=== PATIENT | male | born 1950 ===

== ENCOUNTER 2017-10-25 14:41 | Emergency (ER) | payer MEDICARE, OTHER ==
[2017-10-25 14:50] VITALS: BP 121/83; PULSE 107; RESP 16; O2SAT 99
[2017-10-25 15:18] VITALS: TEMP 100.5
--- NOTE | 2017-10-25 16:05 | ED PDOC ---
HPI: Altered Mental Status Time Seen by Provider: 10/25/17 15:03 Chief Complaint (Nursing): Altered Mental Status History Per: EMS (patient brought by EMS because of he was leaning against something. When awakened patient denies complaints. He acknowledged that he knows he is at a hospital and that it is the 4th. He denies physical complaints such as headaches, neck pain, nausea, vomiting, cough, shortness of breath, diarrhea or abdominal pain.), Other Past Medical History Reviewed: Historical Data, Nursing Documentation, Vital Signs Vital Signs: Last Vital Signs Temp 100.5 F H 10/25/17 15:18 Pulse 107 H 10/25/17 14:45 Resp 16 10/25/17 14:45 BP 121/83 10/25/17 14:45 Pulse Ox 99 10/25/17 14:45 - Medical History PMH: No Chronic Diseases - Family History Family History: States: Unknown Family Hx - Living Arrangements Living Arrangements: With Family (sister and his nephew) - Allergies Allergies/Adverse Reactions: Allergies Allergy/AdvReac Type Severity Reaction Status Date / Time No Known Allergies Allergy Verified 10/25/17 14:44 Review of Systems ROS Statement: Except As Marked, All Systems Reviewed And Found Negative Constitutional: Negative for: Fever, Chills Cardiovascular: Negative for: Chest Pain Respiratory: Negative for: Cough, Shortness of Breath Gastrointestinal: Negative for: Nausea, Vomiting Musculoskeletal: Negative for: Neck Pain Neurological: Negative for: Headache Physical Exam - Reviewed Nursing Documentation Reviewed: Yes Vital Signs Reviewed: Yes - Physical Exam Appears: Positive for: Well, Non-toxic, No Acute Distress Head Exam: Positive for: ATRAUMATIC, NORMAL INSPECTION, NORMOCEPHALIC Skin: Positive for: Normal Color, Warm, DRY Eye Exam: Positive for: Normal appearance, EOMI, PERRL (about 4mm - reactive) ENT: Positive for: Normal ENT Inspection Neck: Positive for: Normal, Painless ROM, Supple. Negative for: Decreased ROM, Limited ROM, Pain On Movement Of Neck Cardiovascular/Chest: Positive for: Regular Rate, Rhythm Respiratory: Positive for: Normal Breath Sounds. Negative for: Respiratory Distress Gastrointestinal/Abdominal: Positive for: Normal Exam, Bowel Sounds, Soft. Negative for: Tenderness Back: Positive for: Normal Inspection Extremity: Positive for: Normal ROM Neurologic/Psych: Positive for: Alert, Oriented - ECG O2 Sat by Pulse Oximetry: 99 Medical Decision Making Medical Decision Making: Patient, once awakened, declines MSE or treatment. Asked again, in front of his sister and nephew, and again insists on leaving. Sister says that she will take him to her PMD. Disposition - Clinical Impression Clinical Impression: Fever - Patient ED Disposition Is Patient to be Admitted: No Doctor Will See Patient In The: Office - Disposition Disposition: Against Medical Advice Disposition Time: 15:45 Condition: GUARDED Instructions: Fever, Adult (DC) - POA Present On Arrival: None
== END 2017-10-25 16:06 | disposition left against medical advice (07) ==
LOC: H.ER 14:41
DX: R50.9 Fever, unspecified (principal)